=== PATIENT | female | born 1950 | race Two or more races ===

== ENCOUNTER → 2024-01-15 | Outpatient (CLI) | payer MEDICARE ==
[~2024-01-15] MED LIST: PROM6.2527
[2024-01-15 10:26] VITALS: BP 132/55; PULSE 96; RESP 18; O2SAT 96
== END | disposition still patient (30) ==
LOC: SRCNTR 09:59
PROVIDERS: ATTEND Internal Medicine Pulmonary Disease
DX: J98.11 Atelectasis (principal); J98.6 Disorders of diaphragm; R05.9 Cough, unspecified; M06.9 Rheumatoid arthritis, unspecified; J32.8 Other chronic sinusitis; I10 Essential (primary) hypertension; E78.5 Hyperlipidemia, unspecified; B45.1 Cerebral cryptococcosis; K27.9 Peptic ulcer, site unspecified, unspecified as acute or chronic, without hemorrhage or perforation; F32.A Depression, unspecified; M19.011 Primary osteoarthritis, right shoulder; Z74.01 Bed confinement status; Z90.49 Acquired absence of other specified parts of digestive tract; Z98.890 Other specified postprocedural states
CPT/HCPCS: G0463

== ENCOUNTER → 2024-04-22 | Outpatient (CLI) | payer MEDICARE, OTHER ==
[~2024-04-22] MED LIST changes: +ACET-2247 PO; +AMLO-257 PO; +ASCO500 PO; +BACL10TA PO; +BISA10SU11 PR; +CALC-805 PO; +CARB50DR OU; +CEFT2VIA60 IV; +CYCL1DRO21 OU; +DOXY-354 PO; +DULO-113 PO; +ETAN50PE2 SQ; +FAMO20 PO; +FERR300L PO; +FLUC200T85 PO; +FLUT16SP NASAL; +FOLI-130 PO; +GABA-1201 PO; +GUAIFDM PO; +IPRA3AMP24 IH; +LACT10SO10 PO; +LORA10TA7 PO; +METH2.5T47 PO; +NA P133E4 PR; +POLY17PO47 PO; +PRED1 PO; +SENN17.24 PO; +SODI45SP10 NASAL
== END | disposition home or self-care (01) ==
LOC: RADMN 13:43
PROVIDERS: ATTEND Internal Medicine Pulmonary Disease
DX: R91.1 Solitary pulmonary nodule (principal); M43.8X4 Other specified deforming dorsopathies, thoracic region; R05.9 Cough, unspecified
CPT/HCPCS: 71250